=== PATIENT | female | born 1990 | race Caucasian/White ===

== ENCOUNTER 2017-01-31 10:31 | Inpatient (IN) | payer BC, OTHER ==
[~2017-01-31] VITALS: Ht 157.5 cm; Wt 52.6 kg
--- NOTE | 2017-01-31 13:45 | NUR ---
Admission Note Admit time: 1345 VS: 119/70: 96: 20: 98.6: 96%: 09/19 Hgt: 52 WT: 116 Pt is a 26 year old female admitted for detoxification of Heroin, under the care of Dr. Dawkins. Pt is cooperative, but hyper-active and has difficulty sitting still, attention span good. A/O x4 and cooperative with staff thru out admit process. Pt denies any HI/SI or A/VH. Able to make needs known. Clear thought and speech. Pt reports PMH of Bipolar and PTSD with no significant health issues indicated. Reports taking 300mg Seroquel XR nightly, 600 Neurontin TID and Zoloft 100mg daily. Pt brought her medication, inventoried, collected and sent to pharmacy. Pt prescribed medication by her psychiatrist, Dr. Pearl of [place]. Pt also has a PCP, Dr. Bob, [place]. Pts personal belongings collected, inventoried and signed for by pt. Pt endorses anxiety, body aches, stomach cramping and some chills noted. Pts initial COWS 11. Pt endorses using IV heroin since age of 17, with 3 years sober until 2014. Pt was in treatment from October, but has been using since leaving. Pt endorses using 1gram a day IV. Also smokes methamphetamine rarely, but used meth last night in an attempt to, deal with the withdrawing. Pt is a full code with an allergy to Vancomycin. Pt is on a regular diet. Pt has a strong support and expects to return to live with her parents. Pt oriented to unit, room and guidelines and regulations. Bed in low position, with wheels locked, side rails up x2, and call light within reach.
--- NOTE | 2017-01-31 13:52 | NUR ---
Pre Admission Assessment Electric Arc Welder encounters pt in intake room on first floor. Pt has stable VS. Pt is cooperative, withdrawn and hyper-active. Pt has difficulty sitting still, making jerky movements of the arms and occasional jerky movements of the lower extremities. Pt is accompanied by family members. Pt states she has not used Heroin in between 24 and 36 hours, but endorses having smoked methamphetamine last night to help with the withdrawing. Pt is A/O x4, clear of thought and speech and able to make her needs known. Pt appears appropriate for admission into [facility].
[2017-01-31] MEDS ORDERED: DICYCLOMINE HCL 20 MG TABLET PO PRN (14:15)
[2017-01-31] MEDS ORDERED: MIRALAX 17 GM POWD.PACK PO PRN (14:15)
[2017-01-31] MEDS ORDERED: ONDANSETRON 4 MG/2 ML VIAL IM PRN (14:15)
[2017-01-31] MEDS ORDERED: ACETAMINOPHEN 325 MG TABLET PO PRN (14:15)
[2017-01-31] MEDS ORDERED: LOPERAMIDE HCL 2 MG CAPSULE PO PRN ×2 (14:15)
[2017-01-31] MEDS ORDERED: ONDANSETRON ODT 4 MG TAB.RAPDIS SL PRN (14:15)
[2017-01-31] MEDS ORDERED: diphenhydrAMINE 50 MG CAPSULE PO PRN (14:15)
[2017-01-31] MEDS ORDERED: HYDROXYZINE PAMOATE 25 MG CAPSULE PO PRN (14:15)
[2017-01-31] MEDS ORDERED: LORAZEPAM 1 MG TABLET PO PRN (14:15)
[2017-01-31] MEDS ORDERED: MAGNESIUM HYDROXIDE 30 ML LIQUID UDC PO PRN (14:15)
[2017-01-31] MEDS ORDERED: METHOCARBAMOL 750 MG TABLET PO PRN (14:15)
[2017-01-31] MEDS ORDERED: MAG HYDROX/AL HYDROX/SIMETH 30 ML LIQUID UDC PO PRN (14:15)
[2017-01-31] MEDS ORDERED: BUPRENORPHINE HCL 2 MG TAB.SUBL SL PRN (14:15)
[2017-01-31 14:35] LABS: *URINE HCG, QUAL NEGATIVE (NEGATIVE)
[2017-01-31 16:27] LABS: *AMPHETAMINE, URINE POSITIVE (NEGATIVE); *BARBITURATE, URINE NEGATIVE (NEGATIVE); *CANNABINOID, URINE NEGATIVE (NEGATIVE); *COCCAINE, URINE NEGATIVE (NEGATIVE); *OPIATE, URINE POSITIVE (NEGATIVE); *PHENCYCLIDINE SCREEN,URINE NEGATIVE (NEGATIVE)
[2017-01-31 16:55] VITALS: BP 127/87
[2017-01-31 17:23] LABS: BASOPHILS % (AUTO) 0.5 % (0.0-2.0); EOSINOPHILS # (AUTO) 0.1 K/uL (0.0-0.7); EOSINOPHILS % (AUTO) 1.3 % (0.0-7.0); HEMATOCRIT 32.7 % (37-47); HEMOGLOBIN 10.8 G/DL (12.0-16.0); LYMPHOCYTES # (AUTO) 1.2 K/UL (0.8-4.8); LYMPHOCYTES % (AUTO) 16.6 % (20.5-51.5); MEAN CORPUSCULAR HEMOGLOBIN 26.2 UUG (27.0-31.0); MEAN CORPUSCULAR HGB CONC 33 g/dL (32.0-37.0); MEAN CORPUSCULAR VOLUME 79.2 FL (81.0-99.0); MONOCYTES # (AUTO) 0.7 K/UL (0.1-1.30); NEUTROPHILS # (AUTO) 5.5 K/UL (1.8-8.9); NEUTROPHILS % (AUTO) 72.6 % (38.5-71.5); PLATELET COUNT (AUTO) 353 K/UL (150-450); RED BLOOD CELL COUNT(AUTO) 4.12 MIL/UL (4.2-5.4); WHITE BLOOD COUNT (AUTO) 7.5 K/UL (4.0-11.2)
[2017-01-31 17:27] LABS: ALANINE AMINOTRANSFERASE 18 U/L (14-59); ALKALINE PHOSPHATASE 108 U/L (50-136); ASPARTATE AMINOTRANSFERASE 20 U/L (15-37); BILIRUBIN,TOTAL 0.4 mg/dL (0.2-1.0); CARBON DIOXIDE 30 mmol/L (21-32); CHLORIDE 100 mmol/L (98-107); CREATININE 0.6 mg/dL (0.6-1.3); GLUCOSE 95 mg/dL (74-106); MAGNESIUM 1.8 mg/dL (1.8-2.4); POTASSIUM 4.1 mmol/L (3.5-5.1); TOTAL PROTEIN, SERUM 7.8 g/dL (6.4-8.2); UREA NITROGEN, BLOOD 11 mg/dL (7-18)
[2017-01-31 17:30] LABS: ETHANOL < 3 MG/DL (0-0)
--- NOTE | 2017-01-31 19:09 | NUR ---
START OF SHIFT NOTE: Patient endorsed to day shift nurse in stable condition. Report given. Patient is a 26 year old female admitted to [facility] for Alcohol dependence on 01/31/2017, has ordered 4 Day Subutex since 02/01/2017. Patient reports Allergy to Vancomycin. Patient is on Full Code, Regular Diet. Patient is on Fall and Seizures Precautions. Patients denies Seizures Hx r/t withdrawal from substances. PMH: Anxiety, Depression, Bipolar Disorder, PTSD, Tobacco dependence, and Substance abuse. Past Surgery History: "Four Abdominal Surgeries r/t Acid-Reflux (as a child), Hiatal Hernia. Upon endorsement, patient is alert and oriented x4, with steady gait. Speech is soft and clear. VS WNL. Respirations unlabored and even. Lungs Sounds are clear. Patient denies SOB and chest pain. Abdomen is soft and non-tender. Bowel Sounds active in all four quadrants. Skin is intact, warm and dry to touch. COWS 8. Patient presented with anxiety, agitation, nervousness, stomach cramps, tremors that can be felt, generalized body aches, sweating, restless legs, and fatigue. Patient denies SI/HI. Encouraged fluids as tolerated. All needs met. Safety measures on place. Call light within reach, bed in lowest position and locked, padded rails up bilaterally. Will continue to monitor closely. Addendum: 01/31/17 at 2222 by GURDEEP GUERRA RN Patient is a 26 year old female admitted to [facility] for Heroin IV dependence on 01/31/2017, has ordered 4 Day Subutex since 02/01/2017. Addendum: 02/01/17 at 0053 by GURDEEP GUERRA RN Debby sumner
--- NOTE | 2017-01-31 19:09 | NUR ---
End of Shift Window Covering Sales Consultant provided report on 26 year old female admitted today for Heroin detoxification. Pt was admitted by chart writer. Pt has an allergy to Vancomycin, is a full code and on a regular diet. PMH of Bipolar and PTSD, with no further medical issues noted. See writers admission note for details.
--- NOTE | 2017-01-31 19:09 | NUR ---
START OF SHIFT NOTE: Patient endorsed by day shift nurse in stable condition. Report received. Patient is a 26 year old female admitted to [facility] for Heroin dependence on 01/31/2017, has ordered 4 Day Subutex since 02/01/2017. Patient reports Allergy to Vancomycin. Patient is on Full Code, Regular Diet. Patient is on Fall and Seizures Precautions. Patients denies Seizures Hx r/t withdrawal from substances. PMH: Anxiety, Depression, Bipolar Disorder, PTSD, Tobacco dependence, and Substance abuse. Past Surgery History: "Four Abdominal Surgeries r/t Acid-Reflux (as a child), Hiatal Hernia. Upon endorsement, patient is alert and oriented x4, with steady gait. Speech is soft and clear. VS WNL. Respirations unlabored and even. Lungs Sounds are clear. Patient denies SOB and chest pain. Abdomen is soft and non-tender. Bowel Sounds active in all four quadrants. Skin is intact, warm and dry to touch. COWS 8. Patient presented with anxiety, agitation, nervousness, stomach cramps, tremors that can be felt, generalized body aches, sweating, restless legs, and fatigue. Patient denies SI/HI. Encouraged fluids as tolerated. All needs met. Safety measures on place. Call light within reach, bed in lowest position and locked, padded rails up bilaterally. Will continue to monitor closely.
[2017-01-31 20:00] VITALS: BP 129/93
[2017-01-31] MEDS: CLONIDINE HCL 0.1 MG TABLET PO PRN (22:11)
--- NOTE | 2017-01-31 22:11 | NUR ---
PRN CATAPRES 0.1 MG 1 TAB PO, PRN BENADRYL 50 MG 1 CAP, AND PRN TYLENOL 650 MG 2 TAB PO ADMINISTRATION Patient c/o increased anxiety, headache:"6/10", and ask aid. Patient's assessed. VS WNL. COWS 8. PRN Clonidine 0.1 mg 1 tab PO for anxiety, PRN Benadryl 50 mg 1 cap PO for insomnia, PRN Tylenol 650 mg 2 tab PO for headache administrated with full glass of water as ordered. Patient tolerated well. All needs met. Safety measures on place. Call light within reach, bed in lowest position and locked, padded rails up bilaterally rails up bilaterally. Will continue to monitor closely.
--- NOTE | 2017-01-31 23:11 | NUR ---
RE-ASSESSMENT Patient is sleeping. Respirations even and unlabored. RR:14. PRN Clonidine PO, PRN Benadryl PO, PRN Tylenol PO for were effective. All needs met. Safety measures on place. Call light within reach, bed in lowest position and locked, padded rails up bilaterally rails up bilaterally. Will continue to monitor closely.
[2017-02-01] VITALS: BP 110/73
[2017-02-01 05:00] VITALS: BP 125/84
--- NOTE | 2017-02-01 06:57 | NUR ---
END OF SHIFT NOTE: Patient endorsed to day shift nurse in stable condition. Report given. Patient is a 26 year old female admitted to [facility] for Heroin dependence on 01/31/2017. Patient's ordered 4 Day Subutex Taper since 02/01/2017. Patient reports "Allergy to Vancomycin". Patient is Full Code, Regular Diet. Patient is Fall and Seizures Precautions. Patients denies Seizures Hx r/t withdrawal from substances. PMH: Anxiety, Depression, Bipolar Disorder, PTSD, Tobacco dependence, and Substance abuse. Past Surgery History: "Four Abdominal Surgeries r/t Acid-Reflux (as a child), Hiatal Hernia. VS at 0400: T: 97.6; BP: 125/84; HR: 90; RR: 12; O2 SAT: 100%. Pain level: "7/10". Patient is calm and cooperative. Respirations unlabored and even. Patient denies SOB, cough and chest pain. Patient denies SI/HI. Skin is intact, warm and dry to touch. COWS 9. Patient presented with anxiety, agitation, nervousness, tremors that can be felt, generalized body aches, sweating, restless legs, and fatigue. Patient denies SI/HI. PRN Clonidine PO, PRN Benadryl PO, PRN Tylenol PO administrated last second shift supervisor were effective. Patient slept 6 hours, intake 1250 ml, voided x2. Encouraged patient to attend group therapies/sessions to learn new coping skills to prevent relapse. All needs met. Safety measures on place. Call light within reach, bed in lowest position and locked, padded rails up bilaterally rails up bilaterally.
--- NOTE | 2017-02-01 07:30 | NUR ---
Start of shift note; Received report from night nurse. Patient is a 26 year old female admitted on 01/31/17 for Opiate withdrawals. Patient was placed on a 4 day Subutex taper to start today. Patient reported history of Bipolar disorder, PTSD. Patient reported allergies to Vancomycin. Patient's last COWS is 9 at 0400, patient slept for 6 hours. Patient is on fall precautions. Bed in lowest position, call light within reach. Will continue to monitor patient.
[2017-02-01 08:00] VITALS: BP 112/78
[2017-02-01 08:08] LABS: HEPATITIS B SURFACE AG Negative (Negative)
[2017-02-01] MEDS: BUPRENORPHINE HCL 2 MG TAB.SUBL SL SCH ×3 (08:46→21:16)
[2017-02-01] MEDS: MULTIVITAMINS,THERAPEUTIC TABLET PO SCH (08:46)
[2017-02-01] MEDS ORDERED: TUBERCULIN,PURIF.PROT.DERIV. 5 TU/0.1 ML TEST ID ONE (09:00)
[2017-02-01] MEDS ORDERED: 4 DAY TAPER BUPRENORPHINE -SERENITY PROTOCOL SL PRN (09:00)
[2017-02-01] MEDS ORDERED: GABAPENTIN 300 MG CAPSULE PO SCH (09:00)
[2017-02-01] MEDS ORDERED: GABA600T PO (10:51)
[2017-02-01] MEDS ORDERED: QUET300T3 PO (10:51)
[2017-02-01] MEDS ORDERED: SERT100T PO (10:51)
[2017-02-01 12:00] VITALS: BP 118/75
[2017-02-01] MEDS: GABAPENTIN 300 MG CAPSULE PO SCH ×2 (14:26→21:17)
[2017-02-01] MEDS: SERTRALINE HCL 100 MG TABLET PO SCH (15:42)
[2017-02-01 16:00] VITALS: BP 122/82
--- NOTE | 2017-02-01 18:58 | NUR ---
START OF SHIFT NOTE: Patient endorsed by day shift nurse in stable condition. Report received. Patient is a 26 year old female admitted to [facility] for Heroin dependence on 01/31/2017, continue 4 Day Subutex since 02/01/2017 which tolerated well without ASE. Patient reports Allergy to Vancomycin. Patient is on Full Code, Regular Diet. Patient is on Fall and Seizures Precautions. Patients denies Seizures Hx r/t withdrawal from substances. PMH: Anxiety, Depression, Bipolar Disorder, PTSD, Tobacco dependence, and Substance abuse. Past Surgery History: "Four Abdominal Surgeries r/t Acid-Reflux (as a child), Hiatal Hernia. Upon endorsement, patient is alert and oriented x4, with steady gait. Speech is soft and clear. VS WNL. Respirations unlabored and even. Lungs Sounds are clear. Patient denies SOB and chest pain. Abdomen is soft and non-tender. Bowel Sounds active in all four quadrants. Skin is intact, warm and dry to touch. COWS 7. Patient presented with anxiety, agitation, nervousness, stomach cramps, tremors that can be felt, generalized body aches, sweating, restless legs, and fatigue. Patient denies SI/HI. Encouraged fluids as tolerated. Encouraged patient to attend group therapies/sessions to learn new coping skills to prevent relapse. All needs met. Safety measures on place. Call light within reach, bed in lowest position and locked, padded rails up bilaterally rails up bilaterally.
--- NOTE | 2017-02-01 18:58 | NUR ---
End of shift note; Patient is AOX4. Patient is a 26 year old female admitted on 01/31/17 for Opiate withdrawals. Patient was placed on a 4 day Subutex taper to start today. Patient reported history of Bipolar disorder, PTSD. Patient reported allergies to Vancomycin. Patient remained compliant with treatment plan. Medications were effective in reducing withdrawal symptoms. All safety measures secured. Met all needs.
[2017-02-01 20:00] VITALS: BP 115/82
[2017-02-01] MEDS: QUETIAPINE FUMARATE 200 MG TABLET PO SCH (21:17)
[2017-02-01] MEDS: CLONIDINE HCL 0.1 MG TABLET PO PRN (21:17)
[2017-02-02] VITALS: BP 104/65
[2017-02-02 04:00] VITALS: BP 109/64
--- NOTE | 2017-02-02 06:53 | NUR ---
END OF SHIFT NOTE: Patient endorsed to day shift nurse in stable condition. Report given. Patient is a 26 year old female admitted to [facility] for Heroin dependence on 01/31/2017 continue ordered 4 Day Subutex Taper since 02/01/2017. Patient reports "Allergy to Vancomycin". Patient is on Full Code, Regular Diet. Patient is on Fall and Seizures Precautions. Patients denies Seizures Hx r/t withdrawal from substances. PMH: Anxiety, Depression, Bipolar Disorder, PTSD, Tobacco dependence, and Substance abuse. Past Surgery History: "Four Abdominal Surgeries r/t Acid-Reflux (as a child), Hiatal Hernia. VS at 0400: T: 98.3; BP: 109/64; HR: 87; RR: 16; O2 SAT: 98%. Pain level: "7/10". Patient is calm and cooperative. Respirations unlabored and even. Patient denies SOB, cough and chest pain. Patient denies SI/HI. Skin is intact, warm and dry to touch. COWS 6. Patient presented with anxiety, agitation, nervousness, tremors that can be felt, generalized body aches, sweating, restless legs, and fatigue. Patient denies SI/HI. No PRN Medications administrated last scene shifter. Patient slept 8 hours, intake 1266 ml, voided x1. Encouraged patient to attend group therapies/sessions to learn new coping skills to prevent relapse. All needs met. Safety measures on place. Call light within reach, bed in lowest position and locked, padded rails up bilaterally rails up bilaterally.
[2017-02-02 08:13] VITALS: BP 104/69
--- NOTE | 2017-02-02 08:16 | NUR ---
START OF SHIFT NOTE Patient is alert and orientated X4. Patient is laying in bed resting with respirations even and unlabored. Patient slept 8 hours last night per night nurse. No PRNs were given last night. Last COWS 6 per night nurse. Patients vital signs are WNL. All needs have been met. All safety measures in place. Will continue to monitor patient.
[2017-02-02] MEDS ORDERED: BUPRENORPHINE HCL 2 MG TAB.SUBL SL SCH (09:00)
[2017-02-02] MEDS: SERTRALINE HCL 100 MG TABLET PO SCH (09:03)
[2017-02-02] MEDS: MULTIVITAMINS,THERAPEUTIC TABLET PO SCH (09:03)
[2017-02-02] MEDS: GABAPENTIN 300 MG CAPSULE PO SCH ×3 (09:03→20:47)
[2017-02-02 13:03] VITALS: BP 129/72
[2017-02-02] MEDS: BUPRENORPHINE HCL 2 MG TAB.SUBL SL SCH ×2 (14:31→20:49)
[2017-02-02 17:31] VITALS: BP 104/71
--- NOTE | 2017-02-02 19:09 | NUR ---
END OF SHIFT NOTE Patient is a 26 year old female admitted for heroin IV. No history of seizures. No PRN given during my shift. Last COWS 6. Patient is on a SUBUTEX taper and tolerating well. Patient participated in group and activities. Patient complained of a boil on butt, given a heat compress to relieve the pain. All needs have been met at this time. All safety measures in place. Will continue to monitor patient until endorsed to oncoming night nurse.
[2017-02-02 20:00] VITALS: BP 128/81
--- NOTE | 2017-02-02 20:00 | NUR ---
1999 Patient received awake, alert and ambulating to his room, # [id number], from [facility] in recreation room. Gait is steady. Patient responds to nurse's greeting and introduction with a smile and, " Hi, you're my nurse tonight?" Patient is oriented to person, place, day, date, time and her personal situation. Patient's color is pink and her skin is warm, dry and intact. Various-sized, mostly small, intact, under the skin, abscesses noted on right inner forearm and right lower leg, near ankle. Patient states, " I have a boil or cyst or abscess on my butt too, that I told Dr. Dawkins about and he told me to just put hot compresses on it, though he didn't even look at it" Very small, reddened, intact area noted on patient's left butt cheek, with larger lump noted under the reddened area. Patient states further, " It hurts too, especially when I touch the area". Patient denies the need for any pain medication at this time and she voices no requests for anything. Patient states that she has been attending groups and has been eating her regular diet trays and taking various fluids ad sonya with no gastric issues so far. Vital signs are: 98.3-103-18 128/81, O2 Sat 99%, COWS 6 . Patient was admitted on 01/31/17 for Heroin withdrawal and she is currently on a 4-Day Subutex medication taper, which she has been apparently tolerating well thus far. Patient is friendly, cooperative and verbally appropriate when interacting with nurse and she easily talks to nurse about herself and her personal life. Patient states that she is going to go downstairs to hospital [facility] for a smoke break shortly. Bed is locked and in lowest position, bed rails are up X 1 and call light within patient's easy reach.
[2017-02-02] MEDS: IBUPROFEN 600 MG TABLET PO PRN (20:49)
[2017-02-02] MEDS: QUETIAPINE FUMARATE 200 MG TABLET PO SCH (20:49)
--- NOTE | 2017-02-02 20:49 | NUR ---
PRN MEDICATION: Prn Motrin 600 mg p.o. given per c/o left butt cheek pain 4-5/10 pain scale.
--- NOTE | 2017-02-02 21:49 | NUR ---
REASSESSMENT PRN MEDICATION: Patient is downstairs on hospital patio for smoke break. Unable to assess her at this time.
--- NOTE | 2017-02-03 | NUR ---
Patient refused to be awakened for V/S, COWS to be done at this time.
--- NOTE | 2017-02-03 04:00 | NUR ---
Patient refused to be awakened at this time for V/S to be done.
--- NOTE | 2017-02-03 06:30 | NUR ---
0630 Patient slept a total of 6 hours and she had 3 voids and no stools. Total intake was 1,276 ml p.o. Prn medication given noted separately per floor protocol. V/SS afebrile, last COWS 6. Patient is presently sleeping comfortably in stable condition with eyes closed and respirations even, unlabored at 12.
--- NOTE | 2017-02-03 07:09 | NUR ---
Start of Shift Endorsement received from nightshift nurse. Pt is a 26 y/o female admitted for Heroin dependence. PT has been placed on a 4 day Subutex taper. Pt is tolerating the taper AEB COWS 6 at 1999. Pt received PRN Motrin. Pt reports sleeping 6 hours and feeling rested. VS WNL. Full Code. . PT is alert and oriented x4. Pt is in STABLE condition at this time. Remains compliant with medication and diet regimen. All needs have been met, All safety measures in place per hospital policy. Bed in lowest position, side rails up x2, call-light within reach. Will continue to monitor
[2017-02-03 08:00] VITALS: BP 109/80
[2017-02-03] MEDS: BUPRENORPHINE HCL 2 MG TAB.SUBL SL SCH ×3 (08:58→20:45)
[2017-02-03] MEDS: SERTRALINE HCL 100 MG TABLET PO SCH (08:58)
[2017-02-03] MEDS: MULTIVITAMINS,THERAPEUTIC TABLET PO SCH (08:58)
[2017-02-03] MEDS: GABAPENTIN 300 MG CAPSULE PO SCH ×3 (08:58→20:45)
[2017-02-03 12:00] VITALS: BP 115/72
[2017-02-03 16:00] VITALS: BP 110/74
[2017-02-03] MEDS: SULFAMETH/TRIMETH 800/160 MG TABLET PO SCH ×2 (18:08→20:44)
--- NOTE | 2017-02-03 19:14 | NUR ---
End of Shift Endorsement given to nightshift nurse. Pt is a 26 y/o female admitted for Heroin dependence. PT has been placed on a 4 day Subutex taper. Pt is tolerating the taper AEB COWS 4 at 1600. Pt did not receive any PRN medications. Dr. Dawkins has started the pt on Bactrim. Pt participated in groups and activities. PT reports readiness for sobriety. Educated pt on deep breathing techniques to relieve anxiety. Educated pt on S/E of medications. Intake: 650ml, Void x4, BM x1. VS WNL. Full Code. . PT is alert and oriented x4. Pt is in STABLE condition at this time. Remains compliant with medication and diet regimen. All needs have been met, All safety measures in place per hospital policy. Bed in lowest position, side rails up x2, call-light within reach. Will continue to monitor
--- NOTE | 2017-02-03 19:48 | NUR ---
1947 Patient received awake, alert and just returning to her room # 322 from [facility] group in recreation room. Gait is brisk, steady. Upon seeing nurse, patient states, " When am I going to get this thing on my but lanced? I'm leaving on Monday and I want it done before I leave." Patient oriented to person, place, day, date, time and her personal situation. Patient's color is pink and her skn is warm, dry and intact. Nurse Practitioner in to see and assess patient along with her c/o left buttock cheek dry, intact "abscess". NUT CRACKER also assessed patient's right inner forearm and right ankle area, under the skin, intact, abscesses. Order then given to this nurse to soak patient's buttock abscess area with warm compresses, in very warm water for 20 minutes. Order then carried out. Patient states, " Oh, this is really ridiculous, to do this stuff! I just want this thing lanced and it will be gone". Patient then refused clean cover dressing to buttock abscess area, after area soaked per NUT CRACKER order. Vital signs are: 98.3-104-18 121/85, COWS 4. Patient states that she continues to eat her meal trays, take various fluids ad sonya and [facility]. Patient states further that the discomfort she does feel on her buttock abscess area, is usually only felt when the area is firmly touched or handled. Right inner forearm and right ankle area abscesses have minimal discomfort, she states. Patient has been started today on P.O. Bactrim for some management of her 'apparently' sterile skin abscesses, and she is pleased about this. Patient was admitted on 01/31/17 for Heroin IV (urine +for opiates, meth and benzo, also) and she is currently on a 4-Day Subutex medication taper, which she has been apparently tolerating well thus far. Patient is friendly, cooperative and verbally appropriate when interacting with nurse, however she is anxious about getting her buttock abscess resolved before her discharge from [facility], and is almost fixated on this issue. Patient instructed to express her feelings about her abscess tomorrow to and or NUT CRACKER that she saw tonight. Patient states, " Okay, I will sure do that". Patient voices no requests at this time. Bed is locked and in lowest position, bed rails are up X 1 and call light within patient's easy reach.
[2017-02-03 20:00] VITALS: BP 142/86
[2017-02-03] MEDS: QUETIAPINE FUMARATE 200 MG TABLET PO SCH (20:45)
[2017-02-03] MEDS: IBUPROFEN 600 MG TABLET PO PRN (20:46)
--- NOTE | 2017-02-03 20:46 | NUR ---
PRN MEDICATION: Prn Motrin 600 mg p.o. given per c/o left buttock pain. Patient states, " She really started that area hurting, when she was pushing on it hard, when she looked at it awhile ago".
--- NOTE | 2017-02-03 21:46 | NUR ---
REASSESSMENT PRN MEDICATION: Patient is downstairs on hospital patio for smoke break. Unable to reassess patient at this time.
--- NOTE | 2017-02-04 | NUR ---
Patient requested at 1999 not to be awakened for V/S to be done at this time.
--- NOTE | 2017-02-04 04:00 | NUR ---
Patient requested earlier not to be awakened at this time for V/S to be done.
--- NOTE | 2017-02-04 06:30 | NUR ---
0630 Patient slept a total of 8 hours and 15 minutes and she had 1 void and no stools. Total intake was 500 ml. Prn medication given noted separately per floor protocol. V/SS afebrile, last CIWA was 4 at 1999. Patient is presently sleeping comfortably in stable condition with eyes closed and respirations even, unlabored at 12.
--- NOTE | 2017-02-04 07:08 | NUR ---
Start of Shift Endorsement received from nightshift nurse. Pt is a 26 y/o female admitted for Heroin dependence. PT has been placed on a 4 day Subutex taper. Pt is tolerating the taper, mildly withdrawing AEB COWS 4 at 1999. Pt received PRN Motrin. Pt has been seen by the SKID MAN and the abscess in her coccyx area. SKID MAN will be visiting her today to drain the abscess. Pt reports sleeping 8 hours and feeling rested. VS WNL. Full Code. . PT is alert and oriented x4. Pt is in STABLE condition at this time. Remains compliant with medication and diet regimen. All needs have been met, All safety measures in place per hospital policy. Bed in lowest position, side rails up x2, call-light within reach. Will continue to monitor
[2017-02-04] MEDS ORDERED: LIDOCAINE 4% TOPICAL 50 ML BOTTLE TP ONE (08:00)
[2017-02-04 08:13] VITALS: BP 102/61
[2017-02-04] MEDS ORDERED: BUPRENORPHINE HCL 2 MG TAB.SUBL SL SCH (09:00)
[2017-02-04] MEDS: GABAPENTIN 300 MG CAPSULE PO SCH ×3 (09:11→21:37)
[2017-02-04] MEDS: LACTOBACILLUS RHAMNOSUS GG 1 EACH CAPSULE PO SCH ×2 (09:11→21:37)
[2017-02-04] MEDS: IBUPROFEN 600 MG TABLET PO PRN (09:11)
[2017-02-04] MEDS: MULTIVITAMINS,THERAPEUTIC TABLET PO SCH (09:11)
[2017-02-04] MEDS: SULFAMETH/TRIMETH 800/160 MG TABLET PO SCH ×2 (09:11→21:42)
[2017-02-04] MEDS: SERTRALINE HCL 100 MG TABLET PO SCH (09:12)
[2017-02-04 12:00] VITALS: BP 111/60
[2017-02-04 16:00] VITALS: BP 114/73
[2017-02-04] MEDS ORDERED: SULF1TAB3 PO (16:22)
[2017-02-04] MEDS ORDERED: CLON0.1T14 PO (16:22)
[2017-02-04] MEDS ORDERED: QUET200T PO (16:22)
[2017-02-04] MEDS ORDERED: LACT1CAP57 PO (16:22)
[2017-02-04 18:14] LABS: *AMPHETAMINE, URINE NEGATIVE (NEGATIVE); *BARBITURATE, URINE NEGATIVE (NEGATIVE); *CANNABINOID, URINE NEGATIVE (NEGATIVE); *COCCAINE, URINE NEGATIVE (NEGATIVE); *OPIATE, URINE POSITIVE (NEGATIVE); *PHENCYCLIDINE SCREEN,URINE NEGATIVE (NEGATIVE)
--- NOTE | 2017-02-04 18:46 | NUR ---
End of Shift Endorsement given to nightshift nurse. Pt is a 26 y/o female admitted for Heroin dependence. PT has been placed on a 4 day Subutex taper. Pt is tolerating the taper AEB COWS 4 at 1600. Pt received PRN Motrin for 5/10 pain after having an abscess drained in her coccyx area by the PT. Pt reported the medication was effective. Pt has been scheduled to be discharged on 02/05/17. All discharge education and paperwork has been completed. PT has not provided urine for UDS yet but has been made aware that she needs to provide a urine sample. Pt has reported understanding of the discharge process. Pt reports readiness for discharge. . Reinforced deep breathing technique by demonstrating it for the pt, pt was able to demonstrate it correctly. . Intake: 1750ml, Void x4, BM x1. VS WNL. Full Code. . PT is alert and oriented x4. Pt is in STABLE condition at this time. Remains compliant with medication and diet regimen. All needs have been met, All safety measures in place per hospital policy. Bed in lowest position, side rails up x2, call-light within reach. Will continue to monitor
--- NOTE | 2017-02-04 19:30 | NUR ---
START OF SHIFT Pt is a 26 y/o female admitted for Heroin dependence. Pt is A/O X 4,allergic to Vancomycin,on regular diet,full code status.Pt has completed 4 day Subutex taper and tolerated well. Last COWS 4 at 1600. Pt is scheduled to be discharged on 02/05/17. All discharge education and paperwork has been completed per day shift,still need urine for UDS .Pt has an abscess in her coccyx area,was drained by PT,dressing dry and intact.Pt is compliant with medication and diet regimen. All needs have been met, All safety measures in place per hospital policy. Bed in lowest position, side rails up x2, call-light within reach. Will continue to monitor
[2017-02-04 20:00] VITALS: BP 120/72
[2017-02-04] MEDS: QUETIAPINE FUMARATE 200 MG TABLET PO SCH (21:37)
[2017-02-05] VITALS: BP 114/73
[2017-02-05 04:00] VITALS: BP 111/72
--- NOTE | 2017-02-05 06:51 | NUR ---
END OF SHIFT Pt is a 26 y/o female admitted for Heroin dependence. Pt is A/O X 4,allergic to Vancomycin,on regular diet,full code status.Pt has completed 4 day Subutex taper and tolerated well. Pt is scheduled to be discharged this morning,she will be going to [facility],states looking foward to being discharged.UDS result in chart. Pt has an abscess in her coccyx area,was drained by PT,dressing dry and intact.Pt is compliant with medication and diet regimen.Last COWS=0 as of 0400 .No PRN meds given last night;Pt slept 8 hrs,fluid intake was 1301 mls,voided x 2 . All needs have been met, All safety measures in place per hospital policy. Bed in lowest position, side rails up x2, call-light within reach. Will continue to monitor
--- NOTE | 2017-02-05 08:00 | NUR ---
START OF SHIFT NOTE Received pt aox4. patient states shes tired but ready for discharge. taper complete. no prns given during production shift supervisor. pt slept 8 hours. COWS 0 per night nurse. patient continues with abscess to coccyx area- wound care yesterday. vital signs stable. will discharge patient this shift
[2017-02-05 08:02] VITALS: BP 119/75
[2017-02-05] MEDS: GABAPENTIN 300 MG CAPSULE PO SCH (08:24)
[2017-02-05] MEDS: MULTIVITAMINS,THERAPEUTIC TABLET PO SCH (08:24)
[2017-02-05] MEDS: SULFAMETH/TRIMETH 800/160 MG TABLET PO SCH (08:24)
[2017-02-05] MEDS: SERTRALINE HCL 100 MG TABLET PO SCH (08:24)
[2017-02-05] MEDS: LACTOBACILLUS RHAMNOSUS GG 1 EACH CAPSULE PO SCH (08:24)
--- NOTE | 2017-02-05 09:40 | NUR ---
DISCHARGE NOTE PATIENT IS IN STABLE CONDITION. VITALS WNL. PT IS AOX4. PATIENT HAS ABSCESS TO COCCYX-TX OF IT HAS BEEN EXPLAINED AND VERBALIZED BACK. PT DENIES S/I AND H/I. ALL DC PAPERWORK COMPLETED, DATED, AND SIGNED. PT EDUCATED ON DC INSTRUCTIONS, WHAT TO DO AFTER DC AND WHEN TO CONTACT MD. PT VERBALIZED UNDERSTANDING OF ALL DC INSTRUCTIONS. LAST CIWA 1. PT WAS DISCHARGED FROM [facility] ON 02/05/17 AT 0940 AND TRANSPORTED TO [facility] WHERE SHE WAS PICKED UP BY [facility]. PT LEFT FACILITY WITH ALL BELONGINGS, RX, AND HOME MEDS. MD HAS BEEN NOTIFIED.
== END 2017-02-05 09:40 | disposition other institution (70) | DRG 895 ==
LOC: SRC 12:35
PROVIDERS: ADMIT Internal Medicine; ATTEND Internal Medicine
PROC: HZ2ZZZZ Detoxification Services for Substance Abuse Treatment (ICD-10-PCS; principal; 2017-01-31)
PROC: HZ41ZZZ Group Counseling for Substance Abuse Treatment, Behavioral (ICD-10-PCS; 2017-02-01)
PROC: HZ31ZZZ Individual Counseling for Substance Abuse Treatment, Behavioral (ICD-10-PCS; 2017-02-02)
PROC: 0H98XZZ Drainage of Buttock Skin, External Approach (ICD-10-PCS; 2017-02-04)
DX: F11.23 Opioid dependence with withdrawal (principal); F33.2 Major depressive disorder, recurrent severe without psychotic features; L03.113 Cellulitis of right upper limb; L02.31 Cutaneous abscess of buttock; L03.317 Cellulitis of buttock; I80.9 Phlebitis and thrombophlebitis of unspecified site; Z81.8 Family history of other mental and behavioral disorders; S51.831S Puncture wound without foreign body of right forearm, sequela; X78.8XXS Intentional self-harm by other sharp object, sequela; F15.220 Other stimulant dependence with intoxication, uncomplicated; Z79.899 Other long term (current) drug therapy; F17.210 Nicotine dependence, cigarettes, uncomplicated; Z87.738 Personal history of other specified (corrected) congenital malformations of digestive system
CPT/HCPCS: 36415; 70030-TC; 80307; 80324; 80346; 80361; 83735; 84703; 85025; 86580; 86592; 86705; 86803; 87340; 87806; A4663; G0480; Q0163